=== PATIENT | male | born 1985 | race Caucasian/White ===

== ENCOUNTER 2019-01-07 04:24 | Emergency (ER) | payer OTHER ==
[~2019-01-07] VITALS: Ht 180 cm; Wt 80.0 kg
--- NOTE | 2019-01-07 04:51 | ED Back Pain ---
General Stated Complaint: BACK PAIN,RUNNING DOWN LEGS & GROIN AREA,STOMACH F Source of Information: Patient Exam Limitations: No Limitations History of Present Illness Date Seen by Provider: Jan 07, 2019 Time Seen by Provider: 04:32 Initial Comments Patient presents to ER by private conveyance with chief complaint of some back pain especially in his lower back radiating around to his right groin and some paresthesias numbness tingling going down his right leg to the level of his kn ee. No incontinence of bowel or bladder, saddle anesthesia or falls. This pain started up at approximately 2000 last night. He was lifting his 1-year-old daughter when he started to have pain brought him down to his knees. He does have a history of back pain from injuries. He's had a cervical spine fusion and he was in high school from a football injury. 2 years ago at [facility] by orthopedic surgeon MRI and CT of the lumbar spine and told he needed surgery. He did not do surgery at that time because he did not have insurance but he's continued to have some degree of back pain and numbness and tingling since then. He says today it's 10 out of 10. He took 400 mg of ibuprofen before coming in. He's felt some chills and had concerns about his right lower quadrant pain may be related to a kidney stone or appendix. He's had no surgeries on his abdomen. No nausea or objective fever but he has had some chills. Had a bowel movement yesterday normal formed. No dysuria. Allergies and Home Medications Allergies Coded Allergies: sulfamethoxazole (Verified Allergy, Unknown, 01/07/19) trimethoprim (Verified Allergy, Unknown, 01/07/19) Patient Home Medication List Home Medication List Reviewed: Yes Review of Systems Constitutional: chills; No diaphoresis, No fever; malaise EENTM: No ear discharge, No ear pain Respiratory: No cough, No short of breath Cardiovascular: No chest pain, No palpitations Gastrointestinal: see HPI, abdominal pain; No constipation, No diarrhea; nausea; No vomiting Genitourinary: No discharge, No dysuria Musculoskeletal: see HPI, back pain Skin: No change in color, No rash Past Gzmyurz-Mpsnme-Wnfxmo Hx Patient Social History Alcohol Use: Denies Use Recreational Drug Use: No Smoking Status: Never a Smoker Recent Foreign Travel: No Contact w/Someone Who Travel: No Physical Exam Vital Signs Vital Signs - First Documented 01/07/19 04:35 Temp 37.0 Pulse 93 Resp 18 B/P (MAP) 145/92 (109) Pulse Ox 100 Capillary Refill : Height, Weight, BMI Height: '" Weight: lbs. oz. kg; BMI Method: General Appearance: WD/WN, Mild Distress HEENT: PERRL/EOMI, Moist Mucous Membranes Neck: Full Range of Motion, Normal Inspection, Non Tender Cardiovascular: Regular Rate, Rhythm, No Edema, Normal Peripheral Pulses Respiratory: No Accessory Muscle Use, No Respiratory Distress Peripheral Pulses: 2+ Dorsalis Pedis (R), 2+ Left Dors-Pedis (L) Genital/Rectal: Other (left inguinal canal normal. Right inguinal canal small palpable hernia nontender on Valsalva maneuver.) Back: Normal Inspection, No CVA Tenderness, Vertebral Tenderness (lumbar spine L2 through L5 and sacral spine midline tenderness as well as right paraspinous tenderness.) Extremity: Normal Capillary Refill, Normal Inspection, Normal Range of Motion, Non Tender, No Calf Tenderness, No Pedal Edema Neurologic/Psychiatric: Alert, Oriented x3, No Motor/Sensory Deficits (sensation bilateral feet is intact) Procedures/Interventions Progress Using a 25 gauge 1/2 inch needle we used Z track method after cleaning the site with iodine and injected 2 cc of 1% lidocaine and 2 cc of 0.5% Marcaine with epinephrine and 1 cc of 40 mg Depo-Medrol at the level of the L5-S1 facet joint. A Band-Aid was placed. Patient tolerated procedure well. Progress/Results/Core Measures Results/Orders Lab Results Laboratory Tests Test 01/07/19 04:50 01/07/19 05:15 Range/Units White Blood Count 6.6 4.3-11.0 10^3/uL Red Blood Count 4.81 4.35-5.85 10^6/uL Hemoglobin 14.9 13.3-17.7 G/DL Hematocrit 44 40-54 % Mean Corpuscular Volume 92 80-99 FL Mean Corpuscular Hemoglobin 31 25-34 PG Mean Corpuscular Hemoglobin Concent 34 32-36 G/DL Red Cell Distribution Width 13.3 10.0-14.5 % Platelet Count 253 130-400 10^3/uL Mean Platelet Volume 9.4 7.4-10.4 FL Neutrophils (%) (Auto) 50 42-75 % Lymphocytes (%) (Auto) 37 12-44 % Monocytes (%) (Auto) 10 0-12 % Eosinophils (%) (Auto) 4 0-10 % Basophils (%) (Auto) 1 0-10 % Neutrophils # (Auto) 3.3 1.8-7.8 X 10^3 Lymphocytes # (Auto) 2.4 1.0-4.0 X 10^3 Monocytes # (Auto) 0.6 0.0-1.0 X 10^3 Eosinophils # (Auto) 0.3 0.0-0.3 10^3/uL Basophils # (Auto) 0.0 0.0-0.1 10^3/uL Sodium Level 140 135-145 MMOL/L Potassium Level 4.4 3.6-5.0 MMOL/L Chloride Level 102 98-107 MMOL/L Carbon Dioxide Level 29 21-32 MMOL/L Anion Gap 9 5-14 MMOL/L Blood Urea Nitrogen 11 7-18 MG/DL Creatinine 0.98 0.60-1.30 MG/DL Estimat Glomerular Filtration Rate > 60 BUN/Creatinine Ratio 11 Glucose Level 94 70-105 MG/DL Calcium Level 9.0 8.5-10.1 MG/DL Corrected Calcium 8.6 8.5-10.1 MG/DL Total Bilirubin 0.5 0.1-1.0 MG/DL Aspartate Amino Transf (AST/SGOT) 22 5-34 U/L Alanine Aminotransferase (ALT/SGPT) 22 0-55 U/L Alkaline Phosphatase 44 40-136 U/L C-Reactive Protein High Sensitivity 0.08 0.00-0.50 MG/DL Total Protein 7.4 6.4-8.2 GM/DL Albumin 4.5 3.2-4.5 GM/DL Urine Color YELLOW Urine Clarity CLEAR Urine pH 8 5-9 Urine Specific [place] 1.015 L 1.016-1.022 Urine Protein NEGATIVE NEGATIVE Urine Glucose (UA) NEGATIVE NEGATIVE Urine Ketones NEGATIVE NEGATIVE Urine Nitrite NEGATIVE NEGATIVE Urine Bilirubin NEGATIVE NEGATIVE Urine Urobilinogen NORMAL NORMAL MG/DL Urine Leukocyte Esterase 1+ H NEGATIVE Urine RBC (Auto) NEGATIVE NEGATIVE Urine RBC NONE /HPF Urine WBC RARE /HPF Urine Squamous Epithelial Cells RARE /HPF Urine Crystals NONE /LPF Urine Bacteria FEW H /HPF Urine Casts NONE /LPF Urine Mucus SMALL H /LPF Urine Culture Indicated NO My Orders Orders - KIRK COHN Ua Culture If Indicated (01/07/19 04:27) Ketorolac Injection (Toradol Injection) (01/07/19 05:00) Ed Iv/Invasive Line Start (01/07/19 04:51) Cbc With Automated Diff (01/07/19 04:51) Comprehensive Metabolic Panel (01/07/19 04:51) Hs C Reactive Protein (01/07/19 04:51) Ondansetron Injection (Zofran Injectio (01/07/19 05:07) Ondansetron Injection (Zofran Injectio (01/07/19 05:45) Bupivacaine 0.5% W/Epi Inj (Sensorcaine (01/07/19 05:45) Methylprednisolone Acetate Inj (Depo-Med (01/07/19 05:45) Lidocaine 1% Inj 20 Ml (Xylocaine 1% Inj (01/07/19 05:45) Bupivacaine 0.5% W/Epi Inj (Sensorcaine (01/07/19 06:04) Medications Given in ED Current Medications Medications Dose Ordered Sig/Rupal Route Start Time Stop Time Status Last Admin Dose Admin Ketorolac Tromethamine 30 mg ONCE ONCE IVP 01/07/19 05:00 01/07/19 05:01 DC 01/07/19 05:00 30 MG Ondansetron HCl 8 mg ONCE ONCE IVP 01/07/19 05:45 01/07/19 05:46 DC 01/07/19 05:00 8 MG Vital Signs/I&O 01/07/19 04:35 Temp 37.0 Pulse 93 Resp 18 B/P (MAP) 145/92 (109) Pulse Ox 100 Progress Progress Note : Time: 05:32 Progress Note Given the patient's concerns and complaint of chills we'll obtain some basic labs and urinalysis to rule out kidney stones or likely infection. This seems to be organic back pain. We have him some Toradol for discomfort and if his lab looks okay we'll plan on getting him an injection of lidocaine, Marcaine and Depo-Medrol. We'll make referral to a back surgeon. He does have a small palpable right inguinal hernia and we can make referral to a general surgeon. He had nausea associated with blood draw so we will give him Zofran. His labs are unremarkable and no signs of inflammation or infection on the CRP or white count. Abdominal exam unremarkable. Departure Impression Primary Impression: Lumbago with sciatica, right side Qualified Codes: M54.41 - Lumbago with sciatica, right side; G89.29 - Other chronic pain Additional Impression: Right inguinal hernia Disposition: 01 HOME, SELF-CARE Condition: Improved Departure-Patient Inst. Decision time for Depature: 06:16 Referrals: SHARON SMYTH DO NO,LOCAL PHYSICIAN (PCP) Primary Care Physician JIMENA LIPSCOMB MD Patient Instructions: Low Back Pain (DC) Add. Discharge Instructions: Please call Dr. Lipscomb, orthopedic surgery and ask for follow-up management of your back pain. For the next 1-2 weeks start taking ibuprofen 4 tablets 3 times a day. Use Tylenol 1000 g every 8 hours as necessary for breakthrough pain. Use a back brace as necessary for pain relief. Use topical creams such as icy hot and Biofreeze etc. Use heating pads. If you have muscle spasms in your back you may use a muscle relaxant such as cyclobenzaprine 1 tablet every 8 hours as needed. It will cause drowsiness. If you have increasing pain in your right groin then you need to call Dr. Smyth, General Surgery and discuss having your right inguinal hernia managed. Scripts Cyclobenzaprine HCl (Cyclobenzaprine HCl) 10 Mg Tablet 10 MG PO Q8H PRN for SPASMS, #15 TAB 0 Refills Prov: KIRK COHN 01/07/19 Copy Copies To 1: SHARON SMYTH DO; JIMENA LIPSCOMB MD, TITUS J Jan 07, 2019 04:51
[2019-01-07 04:59] LABS: BASOPHILS % (AUTO) 1 % (0-10); EOSINOPHILS # (AUTO) 0.3 10^3/uL (0.0-0.3); EOSINOPHILS % (AUTO) 4 % (0-10); HEMATOCRIT 44 % (40-54); HEMOGLOBIN 14.9 G/DL (13.3-17.7); LYMPHOCYTES # (AUTO) 2.4 X 10^3 (1.0-4.0); LYMPHOCYTES % (AUTO) 37 % (12-44); MEAN CORPUSCULAR HEMOGLOBIN 31 PG (25-34); MEAN CORPUSCULAR HGB CONC 34 G/DL (32-36); MEAN CORPUSCULAR VOLUME 92 FL (80-99); MEAN PLATELET VOLUME 9.4 FL (7.4-10.4); MONOCYTES # (AUTO) 0.6 X 10^3 (0.0-1.0); MONOCYTES % (AUTO) 10 % (0-12); NEUTROPHILS # (AUTO) 3.3 X 10^3 (1.8-7.8); NEUTROPHILS % (AUTO) 50 % (42-75); PLATELET COUNT 253 10^3/uL (130-400); RED CELL DISTRIBUTION WIDTH 13.3 % (10.0-14.5); WHITE BLOOD COUNT 6.6 10^3/uL (4.3-11.0)
[2019-01-07] MEDS: KETOROLAC 30 MG/ML VIAL IVP ONE ×2 (05:00→05:05)
[2019-01-07] MEDS: ONDANSETRON 4 MG/2 ML (SDV) Z0FRAN IVP ONE ×2 (05:00→05:36)
[2019-01-07] MEDS: ONDANSETRON 4 MG/2 ML (SDV) Z0FRAN ONE ×2 (05:14→05:32)
[2019-01-07 05:18] LABS: ALANINE AMINOTRANSFERASE 22 U/L (0-55); ALBUMIN 4.5 GM/DL (3.2-4.5); ALKALINE PHOSPHATASE 44 U/L (40-136); BILIRUBIN,TOTAL 0.5 MG/DL (0.1-1.0); BUN/CREATININE RATIO 11; CARBON DIOXIDE 29 MMOL/L (21-32); CHLORIDE 102 MMOL/L (98-107); CREATININE SERUM 0.98 MG/DL (0.60-1.30); GFR ESTIMATED > 60; GLUCOSE 94 MG/DL (70-105); POTASSIUM 4.4 MMOL/L (3.6-5.0); SODIUM 140 MMOL/L (135-145); TOTAL PROTEIN 7.4 GM/DL (6.4-8.2)
[2019-01-07 05:26] LABS: BILIRUBIN,URINE NEGATIVE (NEGATIVE); CLARITY,URINE CLEAR; COLOR,URINE YELLOW; GLUCOSE, URINE (UA) NEGATIVE (NEGATIVE); KETONES,URINE NEGATIVE (NEGATIVE); LEUKOCYTE ESTERASE ,URINE 1+ (NEGATIVE); NITRITE,URINE NEGATIVE (NEGATIVE); PH,URINE 8 (5-9); PROTEIN,URINE NEGATIVE (NEGATIVE); UROBILINOGEN,URINE NORMAL (NORMAL)
[2019-01-07] MEDS ORDERED: ONDANSETRON 4 MG/2 ML (SDV) Z0FRAN IVP ONE (05:30)
[2019-01-07] MEDS ORDERED: LIDOCAINE 1% INJ 20 ML 20 ML VIAL INJ ONE (05:45)
[2019-01-07] MEDS ORDERED: methylPREDNISolone 40 MG/ML (DEPO MEDROL) VIAL IA ONE (05:45)
[2019-01-07] MEDS ORDERED: BUP/EPI 0.5% 1:200,000 (SENSORCAINE) 30 ML VIAL INJ ONE (05:45)
[2019-01-07] MEDS ORDERED: BUP/EPI 0.5% 1:200,000 (SENSORCAINE) 30 ML VIAL ONE (06:04)
[2019-01-07 06:08] LABS: BACTERIA,URINE FEW /HPF; SQUAMOUS EPITHELIAL CELL,UR RARE /HPF; WBC,URINE RARE /HPF
[2019-01-07] MEDS ORDERED: CYCL10TA9 PO (06:19)
[2019-01-07 06:25] VITALS: BP 145/92
== END 2019-01-07 06:30 | disposition home or self-care (01) ==
LOC: ER 04:30
DX: M54.41 Lumbago with sciatica, right side (principal); K40.90 Unilateral inguinal hernia, without obstruction or gangrene, not specified as recurrent; Z88.2 Allergy status to sulfonamides; Z88.1 Allergy status to other antibiotic agents; Z87.828 Personal history of other (healed) physical injury and trauma; X50.0XXA Overexertion from strenuous movement or load, initial encounter
CPT/HCPCS: 36415; 80053; 81000; 85025; 86141

== ENCOUNTER 2019-04-15 12:58 | Outpatient (RCR) | payer OTHER | END 2019-04-15 14:20 | disposition home or self-care (01) | PROVIDERS: ATTEND Family Medicine | DX: Z02.71 Encounter for disability determination (principal); M51.36 Other intervertebral disc degeneration, lumbar region; M47.816 Spondylosis without myelopathy or radiculopathy, lumbar region; M54.40 Lumbago with sciatica, unspecified side ==

== ENCOUNTER → 2019-04-15 | Outpatient (CLI) | payer OTHER ==
[~2019-04-15] MED LIST: CYCL10TA9 PO
--- NOTE | 2019-04-15 15:39 | Diagnostic Imaging Report ---
INDICATION: Neck pain. EXAMINATION: Cervical spine. FINDINGS: AP and lateral views of the cervical spine show normal vertebral alignment. There appears to be fusion of the C3 through C5 vertebral complex. This is probably a congenital fusion. There is no fracture. The other disc spaces are normal. 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 No acute abnormality is seen. Dictated by: Dictated on workstation # [id number]
== END ==
LOC: RAD 14:22
PROVIDERS: ATTEND Family Medicine
DX: Z02.71 Encounter for disability determination (principal)
CPT/HCPCS: 72040